=== PATIENT | female | born 1935 | race Caucasian/White ===

== ENCOUNTER 2019-06-21 09:22 | Outpatient (CLI) | payer MEDICARE ==
--- NOTE | 2019-06-21 11:29 | MMO ---
Bilateral MAMMO Bilat Diag [facility]. CLINICAL HISTORY: Patient is 84 years old and is seen for diagnostic exam and lump or thickening in the left breast. The patient has no family history of breast cancer. The patient has no personal history of cancer. The patient has a history of bilateral Implants in 2012. VIEWS: The views performed were: bilateral craniocaudal with tomosynthesis; bilateral mediolateral oblique with tomosynthesis; bilateral mediolateral with tomosynthesis; and bilateral Implant displaced with tomosynthesis. FILMS COMPARED: The present examination has been compared to a prior imaging study performed at [facility] on 06/21/2019. This study has been interpreted with the assistance of computer-aided detection. MAMMOGRAM FINDINGS: There are scattered fibroglandular densities. There are no suspicious masses, calcifications or areas of architectural distortion. There are benign appearing calcifications in both breasts. Mammographically, implants appear intact. At the left breast palpable markers, no mammographic abnormality. Refer to separate US report. There are no suspicious masses, suspicious calcifications, or new areas of architectural distortion. IMPRESSION: THERE IS NO MAMMOGRAPHIC EVIDENCE OF MALIGNANCY. A ROUTINE FOLLOW-UP MAMMOGRAM IN 1 YEAR IS RECOMMENDED. THE RESULTS OF THIS EXAM WERE SENT TO THE PATIENT. ACR BI-RADS Category 2 - Benign finding MAMMOGRAPHY NOTE: 1. A negative mammogram report should not delay a biopsy if a dominant of clinically suspicious mass is present. 2. Approximately 10% to 15% of breast cancers are not detected by mammography. 3. Adenosis and dense breasts may obscure an underlying neoplasm. Reported by: REY GUILLEN MD Electonically Signed: [id number]
--- NOTE | 2019-06-21 11:29 | BD ---
DEXA BONE DENSITY STUDY: Date: 06/21/19 HISTORY: 84-year-old postmenopausal female for screening for osteoporosis. FINDINGS: Lumbar Spine: BMD (g/cm2) L1 0.917 T-Score: -0.7 L2 1.076 T-Score: 0.4 L3 1.179 T-Score: 0.9 L4 1.067 T-Score: 0.1 L1-L4 1.059 T-Score: 0.1 Femoral Neck: 0.591 T-Score: -2.3 Total Femur: 0.700 T-Score: -2.0 IMPRESSION: Osteopenia. This patient has a 10 year WHO fracture risk of a major osteoporotic fracture of 13% and of a hip fracture of 4.8%. POS: [facility]
--- NOTE | 2019-06-21 12:01 | ULT ---
LEFT BREAST ULTRASOUND: Date: 06/21/19 HISTORY: Palpable focus in the medial inner left breast after trauma. Patient fell and broke four ribs. COMPARISON: None. TECHNIQUE: Targeted sonographic imaging of the region of interest was performed. Static images are reviewed. Aft er reviewing static images, real-time imaging was also performed by the radiologist. FINDINGS: Static and real-time images demonstrate a small amount of fibroglandular tissue. The implant is ident ified. There is a small outpouching of the implant which may represent a defect and is felt to corres pond to the palpable area. IMPRESSION: BI-RADS Category 2 - Benign findings. RECOMMENDATION: Annual mammogram. POS: [facility]
== END 2019-06-21 09:23 | disposition home or self-care (01) ==
LOC: BICMAMMO 09:22
PROVIDERS: ATTEND Specialist
DX: N63.20 Unspecified lump in the left breast, unspecified quadrant (principal); M81.0 Age-related osteoporosis without current pathological fracture; M85.80 Other specified disorders of bone density and structure, unspecified site
CPT/HCPCS: 76642; 77066; 77080; G0279

== ENCOUNTER 2020-02-16 12:37 | Outpatient (CLI) | payer MEDICARE ==
--- NOTE | 2020-02-19 07:35 | RAD ---
EXAM: XR Lumbar Spine 2 Or 3 View PROVIDED CLINICAL HISTORY: Low back pain COMPARISON: None FINDINGS: There are 5 nonrib-bearing lumbar-type vertebral bodies. There is right convex rotoscoliosis of the l umbar spine centered at the level of the L3 vertebral body. There is narrowing of the intervertebral disc spaces at all levels of the lumbar spine. Scattered osteophytes are seen. There i s suggestion of slight retrolisthesis of L2 on L3. Vascular calcifications are seen in the abdominal aorta and iliac arteries. 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
--- NOTE | 2020-02-19 07:36 | RAD ---
XR Hip Lt 2-3 View INDICATION: Left hip pain COMPARISON: None FINDINGS: Bones: No acute osseous abnormality. Bone mineralization appears within normal limits. Hip joint: There is mild to moderate left hip osteoarthrosis. SI joints and symphysis pubis: Mild degenerative change Intrapelvic contents: Visualized bowel gas pattern is within normal limits. Surrounding soft tissues: Radiographically normal. IMPRESSION: 1. 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
== END 2020-02-16 12:38 | disposition home or self-care (01) ==
LOC: BICRAD 12:37
PROVIDERS: ATTEND Specialist
DX: M25.552 Pain in left hip (principal); M54.5 Low back pain; M16.12 Unilateral primary osteoarthritis, left hip; M41.9 Scoliosis, unspecified; M47.816 Spondylosis without myelopathy or radiculopathy, lumbar region
CPT/HCPCS: 72100